=== PATIENT | female | born 1990 | race Caucasian/White ===

== ENCOUNTER 2016-04-13 09:24 | Emergency (ER) | payer BC ==
[2016-04-13] MEDS ORDERED: ONDANSETRON 4 MG VIAL ONE (10:30)
[2016-04-13] MEDS ORDERED: DILAUDID 1 MG/ML AMP ONE (10:31)
[2016-04-13] MEDS ORDERED: METOCLOPRAMIDE 10 MG/2 ML VIAL ONE (11:55)
== END 2016-04-13 13:24 | disposition home or self-care (01) ==
LOC: ER 09:24
DX: R10.13 Epigastric pain (principal)
CPT/HCPCS: 36415; 80053; 81001; 83630; 83690; 84703; 85025; 85652; 86141; 87493; 96374; 96375